=== PATIENT | female | born 1950 | race Caucasian/White ===

== ENCOUNTER 2018-10-16 16:42 | Emergency (ER) | payer MEDICARE, BC ==
--- NOTE | 2018-10-16 18:04 | EDM.PDOC ---
ED HPI GENERAL MEDICAL PROBLEM - General Chief Complaint: Respiratory Problem Stated Complaint: COUGH/FEVER Time Seen by Provider: 10/16/18 16:48 Source of Information: Reports: Patient History Limitations: Reports: No Limitations - History of Present Illness INITIAL COMMENTS - FREE TEXT/NARRATIVE: The patient presents with a cough, congestion, runny nose and a fever. She went to the walk in clinic and they had her come here because she had an irregular heart beat. She has no chest pain or shortness of breath. She no abdominal pain, nausea or vomiting. She has no history of asthma or COPD. She did get her flu shot. She has a history of mitral regurgitation. The symptoms have been there for about a week. Onset: Gradual Duration: Week(s): (1) Severity: Moderate Improves with: Reports: None Worsens with: Reports: None Associated Symptoms: Reports: Cough, Fever/Chills. Denies: Headaches, Nausea/ Vomiting, Shortness of Breath Treatments CHARGE ACCOUNT IDENTIFICATION CLERK: Reports: Other (see below) Other Treatments CHARGE ACCOUNT IDENTIFICATION CLERK: none - Related Data Allergies Allergy/AdvReac Type Severity Reaction Status Date / Time grasses Allergy Itching Uncoded 10/26/13 12:40 mold Allergy Sneezing Uncoded 10/26/13 12:40 Home Meds: Home Meds Albuterol [Proventil HFA] 2 puff INH Q4H PRN #1 inhaler 10/16/18 [Rx] Ascorbic Acid [Vitamin C] 1,000 mg PO DAILY 10/16/18 [History] Aspirin [Halfprin] 81 mg PO DAILY 10/16/18 [History] Atenolol 12.5 mg PO DAILY 10/16/18 [History] Azithromycin [Zithromax] 250 mg PO DAILY #6 tab 10/16/18 [Rx] Cholecalciferol (Vitamin D3) [Vitamin D3] 2,000 unit PO DAILY 10/16/18 [History] Codeine/Promethazine [Phenergan with Codeine] 5 - 10 ml PO Q6HR PRN #300 ml 11/29 [Rx] Estrogens, Conjugated [Premarin] 0.625 mg PO DAILY 10/16/18 [History] Losartan [Cozaar] 100 mg PO DAILY 10/16/18 [History] Lutein Extract/Zeaxanthin Ext [Lutein 15 MG Softgel] 20 mg PO DAILY 10/16/18 [ History] SitaGLIPtin [Januvia] 25 mg PO DAILY 10/16/18 [History] atorvaSTATin Calcium [Lipitor] 40 mg PO BEDTIME 10/16/18 [History] metFORMIN [Glucophage XR] 500 mg PO BID 10/16/18 [History] Past Medical History HEENT History: Reports: Macular Degeneration Cardiovascular History: Reports: Hypertension, Other (See Below) Other Cardiovascular History: irregular heart rate; mitral valve prolapse Musculoskeletal History: Reports: Other (See Below) Other Musculoskeletal History: binionectomy - Past Surgical History Female Surgical History: Reports: Section Social & Family History - Tobacco Use Smoking Status *Q: Never Smoker - Caffeine Use Caffeine Use: Reports: Coffee, Tea - Recreational Drug Use Recreational Drug Use: No ED ROS GENERAL - Review of Systems Review Of Systems: See Below Constitutional: Reports: Fever, Chills HEENT: Reports: No Symptoms Respiratory: Reports: Cough. Denies: Shortness of Breath Cardiovascular: Reports: No Symptoms Endocrine: Reports: No Symptoms GI/Abdominal: Reports: No Symptoms : Reports: No Symptoms Musculoskeletal: Reports: No Symptoms ED EXAM, GENERAL - Physical Exam Exam: See Below Exam Limited By: No Limitations General Appearance: Alert, No Apparent Distress Ears: Normal External Exam Nose: Normal Inspection Head: Atraumatic, Normocephalic Neck: Normal Inspection, Supple, Non-Tender Respiratory/Chest: No Respiratory Distress, Lungs Clear, Rhonchi Cardiovascular: Regular Rate, Rhythm, No Edema, No Murmur GI/Abdominal: Soft, Non-Tender, No Organomegaly, No Mass Back Exam: Normal Inspection Extremities: Normal Inspection EKG INTERPRETATION EKG Date: 10/16/18 Time: 17:23 Rhythm: NSR Rate (Beats/Min): 93 [place]: LAD-Left [place] Deviation P-Wave: Present QRS: Normal ST-T: Normal QT: Normal EKG Interpretation Comments: Q waves in the inferior and anterior leads. PACs. Course - Vital Signs Last Recorded V/S: Last Vital Signs Temp 100.6 F 10/16/18 16:57 Pulse 106 H 10/16/18 16:57 Resp 20 10/16/18 16:57 BP 136/79 10/16/18 16:57 Pulse Ox 95 10/16/18 16:57 - Orders/Labs/Meds Orders: Active Orders 24 hr Category Date Time Status Cardiac Monitoring [RC] . DIRECTED Care 10/16/18 17:08 Active EKG Documentation Completion [RC] STAT Care 10/16/18 17:09 Active RT Aerosol Therapy [RC] ASDIRECTED Care 10/16/18 18:27 Active Chest 2V [CR] Stat Exams 10/16/18 17:09 Taken cefTRIAXone [Rocephin] 1 gm Med 10/16/18 18:30 Active Lidocaine 1% [Xylocaine 1%] 2.1 ml IM Q24H Medication Orders Ceftriaxone Sodium 1 gm/ (Lidocaine HCl 2.1 ml) 0 gm IM Q24H [facility] Labs: Laboratory Tests 10/16/18 10/16/18 Range/Units 17:30 17:30 WBC 9.46 (3.98-10.04) K/mm3 RBC 4.87 (3.98-5.22) M/mm3 Hgb 14.5 (11.2-15.7) gm/L Hct 43.0 (34.1-44.9) % MCV 88.3 (79.4-94.8) fl MCH 29.8 (25.6-32.2) pg MCHC 33.7 (32.2-35.5) g/dl RDW Std Deviation 42.8 (36.4-46.3) fL Plt Count 201 (182-369) K/mm3 MPV 11.3 (9.4-12.3) fl Neut % (Auto) 79.0 H (34.0-71.1) % Lymph % (Auto) 9.6 L (19.3-51.7) % [place] % (Auto) 10.1 (4.7-12.5) % Eos % (Auto) 0.5 L (0.7-5.8) Baso % (Auto) 0.6 (0.1-1.2) % Neut # (Auto) 7.46 H (1.56-6.13) K/mm3 Lymph # (Auto) 0.91 L (1.18-3.74) K/mm3 [place] # (Auto) 0.96 H (0.24-0.36) K/mm3 Eos # (Auto) 0.05 (0.04-0.36) K/mm3 Baso # (Auto) 0.06 (0.01-0.08) K/mm3 Manual Slide Review Normal smear Sodium 135 L (136-145) mEq/L Potassium 4.1 (3.5-5.1) mEq/L Chloride 100 (98-107) mEq/L Carbon Dioxide 25 (21-32) mEq/L Anion Gap 14.1 (5-15) BUN 14 (7-18) mg/dL Creatinine 0.9 (0.55-1.02) mg/dL Est Cr Clr Drug Dosing 52.38 mL/min Estimated GFR (MDRD) > 60 (>60) mL/min BUN/Creatinine Ratio 15.6 (14-18) Glucose 179 H (80-115) mg/dL Calcium 10.5 H (8.5-10.1) mg/dL Total Bilirubin 1.3 H (0.2-1.0) mg/dL AST 16 (15-37) U/L ALT 35 (14-59) U/L Alkaline Phosphatase 86 (46-116) U/L Troponin I < 0.017 (0.00-0.056) ng/mL Total Protein 7.4 (6.4-8.2) g/dl Albumin 4.1 (3.4-5.0) g/dl Globulin 3.3 gm/dL Albumin/Globulin Ratio 1.2 (1-2) TSH 3rd Generation 0.674 (0.358-3.74) uIU/mL Meds: Medications Generic Name Dose Route Start Last Admin Trade Name Freq PRN Reason Stop Dose Admin Ceftriaxone Sodium 1 gm/ 0 gm 10/16/18 18:30 Lidocaine HCl 2.1 ml IM Q24H FILI Discontinued Medications Generic Name Dose Route Start Last Admin Trade Name Freq PRN Reason Stop Dose Admin Albuterol/Ipratropium 3 ml 10/16/18 18:27 Duoneb 3.0-0.5 Mg/3 Ml NEB 10/16/18 18:28 ONETIME ONE - Re-Assessments/Exams Free Text/Narrative Re-Assessment/Exam: 10/16/18 18:06 I ordered an EKG, CXR and labs. Her EKG shows a NSR with PACs and Q waves in the inferior and anterior leads. Her CXR shows a right sided perihilar infiltrate. 10/16/18 18:13 Her WBC is normal. Her Na is low at 135. Her glucose is 179. Her troponin is negative. Her TSH is normal. 10/16/18 18:39 I will give her a shot of rocephin and a duoneb. She has pneumonia. I will get her on some zithromax. 10/16/18 18:41 Departure - Departure Time of Disposition: 18:45 Disposition: Home, Self-Care 01 Condition: Good Clinical Impression: Pneumonia Qualifiers: Pneumonia type: due to unspecified organism Laterality: right Lung location: middle lobe of lung Qualified Code(s): J18.1 - Lobar pneumonia, unspecified organism - Discharge Information *PRESCRIPTION DRUG MONITORING PROGRAM REVIEWED*: No *COPY OF PRESCRIPTION DRUG MONITORING REPORT IN PATIENT TITI: No Prescriptions: Codeine/Promethazine [Phenergan with Codeine] 5 - 10 ml PO Q6HR PRN #300 ml PRN Reason: Cough Albuterol [Proventil HFA] 2 puff INH Q4H PRN #1 inhaler PRN Reason: Shortness Of Breath Azithromycin [Zithromax] 250 mg PO DAILY #6 tab Referrals: Joanna Rodriguez MD [Primary Care Provider] - 1 Week Forms: ED Department Discharge Additional Instructions: Take the zithromax 2 pills on day 1 and 1 pill on day 2 through 5. Use the albuterol inhaler 2 puffs every 6 hours as needed for shortness of breath. Take the phenergan with codeine 5 to 10mls every 6 hours as needed for cough. Please return if you are worse. - My Orders Last 24 Hours: My Active Orders 10/16/18 17:08 Cardiac Monitoring [RC] . DIRECTED 10/16/18 17:09 EKG Documentation Completion [RC] STAT Chest 2V [CR] Stat 10/16/18 18:27 RT Aerosol Therapy [RC] ASDIRECTED 10/16/18 18:30 cefTRIAXone [Rocephin] 1 gm Lidocaine 1% [Xylocaine 1%] 2.1 ml IM Q24H - Assessment/Plan Last 24 Hours: My Active Orders 10/16/18 17:08 Cardiac Monitoring [RC] . DIRECTED 10/16/18 17:09 EKG Documentation Completion [RC] STAT Chest 2V [CR] Stat 10/16/18 18:27 RT Aerosol Therapy [RC] ASDIRECTED 10/16/18 18:30 cefTRIAXone [Rocephin] 1 gm Lidocaine 1% [Xylocaine 1%] 2.1 ml IM Q24H
[2018-10-16] MEDS ORDERED: Albuterol/Ipratropium 3.0-0.5 MG/3 ML Neb Soln NEB ONE (18:27)
[2018-10-16] MEDS ORDERED: cefTRIAXone 1 GM, Lidocaine 1% 2.1 ML IM SCH ×2 (18:30)
--- NOTE | 2018-10-17 08:11 | CR ---
Chest: Two views of the chest are obtained. Comparison: No prior chest x-ray. Parenchymal density is noted within the right mid and lower lung. Left lung is clear. Heart size and mediastinum are normal. Scoliosis noted within the spine with mild degenerative change. Impression: 1. Parenchymal density within the right mid and lower lung most likely due to pneumonia. Recommend repeat study several weeks after clinical therapy is complete to confirm that this resolves as expected for a simple pneumonia. Diagnostic code #3
== END 2018-10-16 19:10 | disposition home or self-care (01) ==
LOC: JD.ED 16:42
DX: J18.1 Lobar pneumonia, unspecified organism (principal); I10 Essential (primary) hypertension; Z88.8 Allergy status to other drugs, medicaments and biological substances; Z79.899 Other long term (current) drug therapy; Z79.82 Long term (current) use of aspirin
CPT/HCPCS: 36415; 71046; 80053; 84443; 84484; 85025; 87804; 93005; 94640; 96372; 99284; J0696; J2001; 93010; 99283; J7620-GY